=== PATIENT | female | born 1985 | race Caucasian/White ===

== ENCOUNTER 2019-04-22 18:36 | Emergency (ER) | payer OTHER ==
[~2019-04-22] VITALS: Ht 157.5 cm; Wt 46.3 kg
[2019-04-22] MEDS ORDERED: ZOVIA 1-35E TA1 EACH PO (18:45)
[2019-04-22] MEDS ORDERED: IPRAT-ALBUT 0.5-3 ML IH (22:32)
[2019-04-22] MEDS ORDERED: MEDROLPACK PO (22:32)
[2019-04-22] MEDS ORDERED: MUCINEX DM ER1 EAC1 PO (22:32)
[2019-04-22] MEDS ORDERED: BUDESONIDE0.5 MG/21 IH (22:32)
[2019-04-22] MEDS ORDERED: TESSALON PERLE100 M1 PO (22:32)
== END 2019-04-22 22:36 ==
LOC: ER 18:36
DX: J98.01 Acute bronchospasm (principal); J11.1 Influenza due to unidentified influenza virus with other respiratory manifestations